=== PATIENT | male | born 1975 | race African-American/Black ===

== ENCOUNTER 2018-03-24 18:39 | Emergency (ER) | payer SELFPAY ==
[2018-03-24 18:55] VITALS: BP 125/80; PULSE 100; BMI 23.5
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
== END 2018-03-24 19:52 | disposition home or self-care (01) ==
LOC: JERFT 18:39
DX: S02.69XD Fracture of mandible of other specified site, subsequent encounter for fracture with routine healing (principal); Y00.XXXD Assault by blunt object, subsequent encounter
CPT/HCPCS: 99281-25